=== PATIENT | female | born 1985 | race Caucasian/White ===

== ENCOUNTER 2017-05-16 15:27 | Inpatient (IN) | payer MEDICAID, OTHER ==
[2017-05-16 15:47] VITALS: BMI 19.1
[2017-05-16 16:32] LABS: BASO # 0.02 K/mm3 (0.0-2.0); BASO % 0.2 % (0.0-3.0); EOS # 0.1 (0.0-0.7); EOS % 1.1 % (1.5-5.0); GRAN # 7.53 (1.4-6.5); GRAN % 72.5 % (50.0-68.0); LYMPH # 2.1 (1.2-3.4); LYMPH % 20.2 % (22.0-35.0); MEAN CELL VOLUME 94.5 fL (80.0-105.0); MEAN CORPUSCULAR HEMOGLOBIN 31.6 pg (25.0-35.0); MEAN CORPUSCULAR HGB CONC 33.4 g/dl (31.0-37.0); MONO # 0.6 (0.1-0.6); PLATELET COUNT 276 10^3/uL (120.0-450.0); RBC 3.48 10^6/uL (3.5-6.1); RED CELL DISTRIBUTION WIDTH 12.8 % (11.5-14.5); WHITE BLOOD COUNT 10.4 10^3/ul (4.5-11.0)
--- NOTE | 2017-05-16 16:33 | ED PDOC ---
Arrival/HPI - General Chief Complaint: Psychiatric Evaluation Time Seen by Provider: 05/16/17 15:40 Historian: Patient - History of Present Illness Narrative History of Present Illness (Text): 05/16/17 16:26 A 32 year old female who is approximately 6 weeks , reports having a past medical history of psych disorders, PTSD, "diabetes", "seizure disorder", "fibromyalgia", and "CAD", not on any medication for diabetes or seizure, presents to the emergency department for unwitnessed seizure prior to arrival. Patient reports she was unable to get into her transitional home and went to see her grandmother. Upon arrival, she states her grandmother left because she did not want to see her. She reports that made her feel stressed which she believes caused her to have a seizure. Patient reports left arm weakness and generalized body aches. Patient denies any fever, chills, nausea, vomiting, diarrhea, abdominal pain, urinary symptoms, vaginal bleeding/discharge, chest pain, shortness of breath or any other complaints. Time/Duration: Prior to Arrival Quality: Other Context: Other Past Medical History - Provider Review Nursing Documentation Reviewed: Yes - Cardiac Hx Cardiac Disorders: Yes (unknown) - Pulmonary Hx Respiratory Disorders: No - Neurological Hx Neurological Disorder: No - HEENT Hx HEENT Disorder: No - Renal Hx Renal Disorder: No - Endocrine/Metabolic Hx Endocrine Disorders: No - Hematological/Oncological Hx Blood Disorders: No - Integumentary Hx Dermatological Disorder: No - Musculoskeletal/Rheumatological Hx Musculoskeletal Disorders: No - Gastrointestinal Hx Gastrointestinal Disorders: No - Genitourinary/Gynecological Hx Genitourinary Disorders: No - Psychiatric Hx Bipolar Disorder: Yes Hx Schizophrenia: Yes Hx Substance Use: No - Anesthesia Hx Anesthesia: No Family/Social History - Physician Review Nursing Documentation Reviewed: Yes Family/Social History: No Known Family HX Smoking Status: Never Smoked Hx Alcohol Use: No Hx Substance Use: No Allergies/Home Meds Allergies/Adverse Reactions: Allergies fluticasone [From Advair Diskus] Allergy (Verified 05/16/17 15:42) RASH salmeterol [From Advair Diskus] Allergy (Verified 05/16/17 15:42) RASH shellfish derived Allergy (Verified 05/16/17 15:42) RASH Home Medications: Home Meds Medication Instructions Recorded Confirmed Aspirin/Calcium Carbonate [Francisco 1 each PO DAILY 05/16/17 05/16/17 Women's Aspirin Tablet] Review of Systems - Physician Review All systems were reviewed & negative as marked: Yes - Review of Systems Constitutional: absent: Fevers, Night Sweats Respiratory: absent: SOB Cardiovascular: absent: Chest Pain Gastrointestinal: absent: Abdominal Pain, Diarrhea, Nausea, Vomiting Genitourinary Female: absent: Dysuria, Frequency, Hematuria, Urine Output Changes, Vaginal Bleeding, Vaginal Discharge Musculoskeletal: Myalgias Neurological: Seizure (possible), Other (Left arm weakness) Psychiatric: Other (No SI). absent: Suicidal Ideation Physical Exam Vital Signs Reviewed: Yes Vital Signs Temp Pulse Resp BP Pulse Ox 05/16/17 18:58 66 18 115/78 97 05/16/17 15:43 97.5 F L 69 20 113/75 94 L 05/16/17 15:40 97.5 F L 69 20 113/75 97 Temperature: Afebrile Blood Pressure: Normal Pulse: Regular Respiratory Rate: Normal Appearance: Positive for: Well-Appearing, Non-Toxic, Comfortable Pain Distress: None Mental Status: Positive for: Alert and Oriented X 3 - Systems Exam Head: Present: Atraumatic, Normocephalic Pupils: Present: PERRL Extroacular Muscles: Present: EOMI Conjunctiva: Present: Normal Mouth: Present: Moist Mucous Membranes Neck: Present: Normal Range of Motion Respiratory/Chest: Present: Clear to Auscultation, Good Air Exchange. No: Respiratory Distress, Accessory Muscle Use Cardiovascular: Present: Regular Rate and Rhythm, Normal S1, S2. No: Murmurs Abdomen: Present: Normal Bowel Sounds, Other (Gravid abdomen). No: Tenderness, Distention, Peritoneal Signs Back: Present: Normal Inspection Upper Extremity: Present: Normal Inspection. No: Cyanosis, Edema Lower Extremity: Present: Normal Inspection. No: Edema Neurological: Present: GCS=15, CN II-XII Intact, Speech Normal, Motor Func Grossly Intact, Normal Sensory Function, Normal Cerebellar Funct, Gait Normal Skin: Present: Warm, Dry, Normal Color. No: Rashes Psychiatric: Present: Alert, Oriented x 3, Normal Insight, Normal Concentration Medical Decision Making ED Course and Treatment: 05/16/17 16:25 Impression: A 32 year old female presented after unwitnessed seizure. Normal neuro exam. Differential Diagnosis included but are not limited to: Psych disorder NOS; ; Possible Seizure Plan: -- Head CT -- age ultrasound -- EKG -- Labs -- Urinalysis -- Reassess and disposition Progress Notes: EKG shows NSR at [address]-segment elevations, normal intervals, normal axis. Interpreted by me. Patient reported left arm weakness and stated she could not move her arm. However, throughout her examination I saw patient move her arm. She was further questioned and asked to move her arm which then she was able to fully move her arm. 05/16/17 16:46 Spoke with patients aunt, Johana, who reports family found patient on the porch screaming she was in pain. Aunt reports patient has a history of bipolar disorder and schizophrenia. She is unaware that patient has a history of diabetes or seizure disorder. Aunt states patient has self diagnosed at times. She reports patient was recently admitted to the hospital for psych. 05/16/17 17:02 Spoke to patient's mom who called. Her name is Owen and her cell number is . Mom states that patient has an extensive psych history and that she is not honest about her medical history. She doesn't believe she has all that medical issues she is stating. She states that her daughter has been admitted several times for psych and needs help. She states that and pt's grandmother have restraining orders on her. 05/16/17 17:54 Patient signed a waiver form required by radiology. She agreed to CT and CXR understands there may be some radiology exposure to the fetus. The abdomen and fetus was covered during imagining completion. CXR negative. 05/16/17 18:50 CT Head negative. Patient is medically cleared for psych evaluation and admission. 05/16/17 19:01 Case discussed with DUANE Marie who states patient will sign in for Bipolar to Dr. Landaverde. - Lab Interpretations Lab Results: 05/16/17 16:00 05/16/17 16:00 Lab Results 05/16/17 16:00: Alcohol, Quantitative < 10 05/16/17 16:00: Salicylates < 1 L, Acetaminophen < 10.0 L 05/16/17 16:00: Urine Color Yellow, Urine Appearance Clear, Urine pH 7.0, Ur Specific Chilton 1.020, Urine Protein Trace H, Urine Glucose (UA) Negative, Urine Ketones 15 H, Urine Blood Negative, Urine Nitrate Negative, Urine Bilirubin Negative, Urine Urobilinogen 0.2, Ur Leukocyte Esterase Negative, Urine RBC 0 - 2, Urine WBC 0 - 2, Ur Epithelial Cells 4 - 5, Calcium Oxalate Crystal Trace, Other Crystals None, Urine Bacteria Large 05/16/17 16:00: Sodium 137, Potassium 3.7, Chloride 108 H, Carbon Dioxide 22, Anion Gap 11, BUN 8, Creatinine 0.6, Est GFR ( Amer) > 60, Est GFR (Non- Af Amer) > 60, Random Glucose 79, Calcium 8.8, Magnesium 1.9, Total Bilirubin 0.4, AST 21, ALT 24, Alkaline Phosphatase 69, Troponin I < 0.01, Total Protein 6.5, Albumin 3.5, Globulin 3.0, Albumin/Globulin Ratio 1.2 05/16/17 16:00: PT 9.9, INR 0.92 L, APTT 28.5 05/16/17 16:00: WBC 10.4, RBC 3.48 L, Hgb 11.0 L, Hct 32.9 L, MCV 94.5, MCH 31.6 , MCHC 33.4, RDW 12.8, Plt Count 276, MPV 9.0, Gran % 72.5 H, Lymph % (Auto) 20.2 L, Anderson % (Auto) 6.0, Eos % (Auto) 1.1 L, Baso % (Auto) 0.2, Gran # 7.53 H , Lymph # 2.1, Anderson # 0.6, Eos # 0.1, Baso # 0.02 I have reviewed the lab results: Yes - RAD Interpretation Radiology Orders: 05/16/17 16:00 AGE [US] Stat 05/16/17 16:05 HEAD W/O CONTRAST [CT] Stat 05/16/17 16:53 CHEST PORTABLE [RAD] Stat - Scribe Statement The provider has reviewed the documentation as recorded by the Scribe Shahnaz Don Provider Scribe Attestation: All medical record entries made by the Scribe were at my direction and personally dictated by me. I have reviewed the chart and agree that the record accurately reflects my personal performance of the history, physical exam, medical decision making, and the department course for this patient. I have also personally directed, reviewed, and agree with the discharge instructions and disposition. Disposition/Present on Arrival - Present on Arrival Any Indicators Present on Arrival: No History of DVT/PE: No History of Uncontrolled Diabetes: No Urinary Catheter: No History of Decub. Ulcer: No History Surgical Site Infection Following: None - Disposition Have Diagnosis and Disposition been Completed?: No Diagnosis: Psychiatric care Disposition: HOSPITALIZED Disposition Time: 17:56 Patient Plan: Admission Patient Problems: Current Active Problems Problem Status Onset Psychiatric care Acute Condition: GOOD
[2017-05-16 16:35] LABS: ALB/GLOB RATIO 1.2 (1.1-1.8); ALBUMIN 3.5 g/dL (3.0-4.8); ALT/SGPT 24 U/L (7-56); AST/SGOT 21 U/L (15-39); BLOOD UREA NITROGEN 8 mg/dL (7-21); CALCIUM 8.8 mg/dL (8.4-10.5); GFR AFRICAN-AMERICAN > 60; GFR NON-AFRICAN AMERICAN > 60; MAGNESIUM 1.9 mg/dL (1.7-2.2)
[2017-05-16 16:39] LABS: ACETAMINOPHEN < 10.0 ug/ml (10.0-20.0); SALICYLATE < 1 mg/dL (2.0-20.0)
[2017-05-16 16:47] LABS: URINE BILIRUBIN NEGATIVE (NEGATIVE); URINE BLOOD NEGATIVE (NEGATIVE); URINE GLUCOSE (UA) NEGATIVE (NEGATIVE); URINE LEUKOCYTE ESTERASE NEGATIVE Leu/uL (NEGATIVE); URINE NITRATE NEGATIVE (NEGATIVE); URINE PROTEIN TRACE mg/dL (<30 mg/dL); URINE UROBILINOGEN 0.2 E.U./dL (<1 E.U./dL)
[2017-05-16 16:49] LABS: INR 0.92 (0.93-1.08); PARTIAL THROMBOPLASTIN TIME 28.5 Seconds (23.7-30.8); PROTHROMBIN TIME 9.9 Seconds (9.9-11.8)
[2017-05-16 16:51] LABS: TROPONIN I < 0.01 ng/mL
[2017-05-16 17:08] LABS: URINE APPEARANCE CLEAR (CLEAR); URINE COLOR YELLOW (YELLOW)
--- NOTE | 2017-05-16 17:40 | US ---
Indication: r/o viability Comparison: None available Technique: Real-time ultrasound was performed through the pelvis. Findings: There is a single living fetus in variable presentation. The placenta appears posterior extending to the fundus and to the right. The placenta is not previa. There are no adnexal masses or cysts evident. Cervix length measures approximately 3.4 cm. Measurements and calculations: Fetus has a composite sonographic age of 24 weeks 2 days. This calculation is based on the biparietal diameter, head circumference, abdominal circumference, and femur length. Estimated heart rate 143.4 beats per min. Impression: Single living fetus with a composite sonographic age of 24 weeks 2 days. Estimated heart rate 143.4 beats per min. The study was performed for emergent evaluation, and the whole anatomic survey of the fetus was not performed. This should be performed on an outpatient elective basis as clinically warranted.
[2017-05-16 18:20] LABS: URINE CALCIUM OXALATE CRYSTALS TRACE /hpf; URINE RBC 0 - 2 /hpf (0-2); URINE WBC 0 - 2 /hpf (0-6)
[2017-05-16 18:21] LABS: URINE BACTERIA LARGE (NEG)
--- NOTE | 2017-05-16 18:47 | CT ---
PROCEDURE: CT HEAD WITHOUT CONTRAST. HISTORY: seizure COMPARISON: None available. TECHNIQUE: Axial computed tomography images were obtained through the head/brain without intravenous contrast. Radiation dose: Total exam DLP = 677.45 mGy-cm. This CT exam was performed using one or more of the following dose reduction techniques: Automated exposure control, adjustment of the mA and/or kV according to patient size, and/or use of iterative reconstruction technique. FINDINGS: HEMORRHAGE: No intracranial hemorrhage. BRAIN: No mass effect or edema. No atrophy or chronic microvascular ischemic changes.Please note that MRI with diffusion imaging is more sensitive in the detection of acute ischemic event. VENTRICLES: No hydrocephalus. CALVARIUM: Unremarkable. PARANASAL SINUSES: Unremarkable as visualized. No significant inflammatory changes. MASTOID AIR CELLS: Unremarkable as visualized. No inflammatory changes. OTHER FINDINGS: None. IMPRESSION: No acute intracranial pathology identified.
[2017-05-16 18:58] VITALS: O2SAT 97
[2017-05-16 19:22] LABS: BARBITURATES, UR NEGATIVE (NEGATIVE); BENZODIAZEPINES, UR NEGATIVE (NEGATIVE); OPIATES, UR NEGATIVE (NEGATIVE); PHENCYCLIDINE, UR NEGATIVE (NEGATIVE)
--- NOTE | 2017-05-17 00:58 | PCM.BM ---
<Benedicto Vale - Last Filed: 05/17/17 01:06> Treatment Plan Problems - Problems identified on initial assessmt PSYCHOSIS Date Initiated: 05/16/17 Time Initiated: 21:00 Assessment reference: NA Status: Active MEDICATION NON COMPLIANCE Date Initiated: 05/16/17 Time Initiated: 22:00 Assessment reference: NA Status: Active Treatment assets and liabiliti Patient Assests: adapts well, cooperative, educated, motivated, self-reliant, ADL independent, physically healthy, negotiates basic needs, financial stabiity , cognitively intact, good interpersonal skills Patient Liabilities: live alone, financial problems, poor support system, relationship conflicts - Milieu Protocol Maintain good personal hygiene: daily Encourage regular showers, daily Remind patient to perform daily oral care Conduct patient checks and document Observation sheet: Q15 minutes Maintain personal safety: every shift Educate patient to report safety concerns to staff, every shift Monitor environment for contraband/sharps Medication safety: Monitor for expected outcome, potential side effects: every shift, Assess barriers to learning: every shift, Assess readiness for medication education: every shift Family Contact Family involvement: Family/SO is involved Family contact: Patient agrees to contact <Angela Vasquez - Last Filed: 05/17/17 15:04> - Diagnosis (1) Schizoaffective disorder Status: Acute Interventions: 05/17/17 15:05 Psychoeducation/psychotherapy Psychopharmacology/adjustment of medications as needed/ monitoring possible side effects Evaluate pt on daily basis Compliance with medications and follow up appointments Long acting medication if pt is noncompliant with pill form Suicide and homicide risk assessment and prevention, coping strategies, safety plan Relapse prevention Reduction of symptoms Improve functional status Possible assertive community treatment Cognitive behavioral therapy Family intervention Possible social skill training as outpatient (2) PTSD (post-traumatic stress disorder) Status: Acute Interventions: 05/17/17 15:05 Psychoeducation Psychopharmacology/adjustment of medications as needed/ monitoring possible side effects Evaluate pt on daily basis Compliance with medications and follow up appointments Suicide and homicide risk assessment and prevention, coping strategies, safety plan Reduction of symptoms Relaxation techniques and breathing exercises Improve functional status Family intervention As outpatient: cognitive behavioral therapy <Azul Marion - Last Filed: 05/21/17 08:47> Family Contact Family contact name: Aimee Maciel (pt's aunt/godmother), Family contacted how many times per week?: 2 Family contact comment: Patient's aunt provided collateral information regarding patient's condition, stating, "She's needs a lot of help." - Goals for Treatment Patient goals for treatment: Pt states, "I want to get my meds and get out of here." Discharge/Continuing Care - Education Needs Education Needs: Patient Medication, Patient Diagnosis/Disease Process, Patient Coping Skills, Patient Placement options, Patient Community resources, Patient Nutrition, Patient Health Practices/Safety, Patient Personal Hygiene/Grooming, Patient Aftercare Safety Plan, Patient Other ( care)
[2017-05-17 07:26] VITALS: RESP 20
[2017-05-17 07:38] LABS: GLUCOSE,FASTING 78 mg/dL (65-110); HDL CHOLESTEROL 56 mg/dL (29-60)
[2017-05-17 07:55] LABS: LDL CHOLESTEROL 146 mg/dL (0-129)
--- NOTE | 2017-05-17 08:59 | RAD ---
HISTORY: Chest pain COMPARISON: No prior. FINDINGS: LUNGS: The lungs are clear. PLEURA: No significant pleural effusion identified, no pneumothorax apparent. CARDIOVASCULAR: Normal. OSSEOUS STRUCTURES: No significant abnormalities. VISUALIZED UPPER ABDOMEN: Normal. OTHER FINDINGS: None. IMPRESSION: No active pulmonary disease.
--- NOTE | 2017-05-17 13:05 | CARD ---
APPROVED REPORT EKG Measurement Heart [id number] <Conclusion> Normal sinus rhythm Normal ECG
[2017-05-17] MEDS: PRENATAL VITAMIN PO SCH (13:18)
--- NOTE | 2017-05-17 13:41 | CP.PCM.CON ---
History of Present Illness - History of Present Illness History of Present Illness: Medicine consult note: 32 yo F with pmh of mainly self diagnosed DM, Seizures, CAD, strokes, asthma, gluten allergy, and PTSD presents following an episode of unwitnessed seizure. She states that she gets spasmadic accompanied with loss of vision and hearing. Patient also had earlier reported complaints of left arm weakness and generalized body aches. Head CT and CXR in the ED was mainly unremarkable. Pelvic US showed 24 week and 2 days viable . She currently has no medical complaints. Denies any dennis, dizziness, fever, chills, sob, chest pain, palpitation, abd pain, n/v/d. PMH: DM, Seizures, CAD, strokes, asthma, gluten allergy, and PTSD PSH: wisdom teeth extraction Med: aspirin but non since ALL: advair and gluten SH: hx of cocaine and marijuana but denies any since pregant, Active smoker 1PPd for 7 years, denies drinking FH: denies Review of Systems - Review of Systems All systems: reviewed and no additional remarkable complaints except (HPI) Past Patient History - Past Social History Smoking Status: Never Smoked Alcohol: None - CARDIAC Hx Cardiac Disorders: Yes (unknown) - PULMONARY Hx Respiratory Disorders: No - NEUROLOGICAL Hx Neurological Disorder: No - HEENT Hx HEENT Problems: No - RENAL Hx Chronic Kidney Disease: No - ENDOCRINE/METABOLIC Hx Endocrine Disorders: No - HEMATOLOGICAL/ONCOLOGICAL Hx Blood Disorders: No - INTEGUMENTARY Hx Dermatological Problems: No - MUSCULOSKELETAL/RHEUMATOLOGICAL Hx Musculoskeletal Disorders: No - GASTROINTESTINAL Hx Gastrointestinal Disorders: No - GENITOURINARY/GYNECOLOGICAL Hx Genitourinary Disorders: No - PSYCHIATRIC Hx Bipolar Disorder: Yes Hx Schizophrenia: Yes Hx Substance Use: No - SURGICAL HISTORY Hx Surgeries: No - ANESTHESIA Hx Anesthesia: No Meds Allergies/Adverse Reactions: Allergies Allergy/AdvReac Type Severity Reaction Status Date / Time fluticasone Allergy RASH Verified 05/16/17 15:42 [From Advair Diskus] salmeterol Allergy RASH Verified 05/16/17 15:42 [From Advair Diskus] shellfish derived Allergy RASH Verified 05/16/17 15:42 - Medications Medications: Current Medications Acetaminophen (Tylenol 325mg Tab) 500 mg PO Q6H PRN PRN Reason: Pain, Mild (1-3) Diphenhydramine HCl (Benadryl) 25 mg PO HS PRN PRN Reason: Insomnia Home Med (Home Med) 1 unit PO DAILY ISADORA Last Admin: 05/17/17 13:18 Dose: Not Given Physical Exam - Constitutional Appears: No Acute Distress - Head Exam Head Exam: ATRAUMATIC, NORMAL INSPECTION, NORMOCEPHALIC - Eye Exam Eye Exam: EOMI, Normal appearance, PERRL Pupil Exam: NORMAL ACCOMODATION, PERRL - ENT Exam ENT Exam: Mucous Membranes Moist, Normal Exam - Neck Exam Neck exam: Positive for: Normal Inspection - Respiratory Exam Respiratory Exam: Clear to Auscultation Bilateral, NORMAL BREATHING PATTERN. absent: Wheezes - Cardiovascular Exam Cardiovascular Exam: REGULAR RHYTHM, RRR, +S1, +S2 - GI/Abdominal Exam GI & Abdominal Exam: Normal Bowel Sounds, Soft. absent: Tenderness Additional comments: fundal height at umbilicus. - Extremities Exam Extremities exam: Positive for: normal inspection - Back Exam Back exam: NORMAL INSPECTION - Neurological Exam Neurological exam: Alert, CN II-XII Intact, Normal Gait, Oriented x3, Reflexes Normal - Psychiatric Exam Psychiatric exam: Normal Affect, Normal Mood - Skin Skin Exam: Dry, Intact, Normal Color, Warm Results - Vital Signs Recent Vital Signs: Last Vital Signs Temp 97.9 F 05/17/17 07:25 Pulse 59 L 05/17/17 07:25 Resp 20 05/17/17 07:25 BP 102/66 05/17/17 07:25 Pulse Ox 97 05/16/17 18:58 - Labs Result Diagrams: 05/16/17 16:00 05/16/17 16:00 Labs: Laboratory Results - last 24 hr 05/17/17 05/17/17 05/17/17 06:25 06:25 06:25 Fasting Glucose 78 Triglycerides 134 Cholesterol 211 H LDL Cholesterol Direct 146 H HDL Cholesterol 56 TSH 3rd Generation 2.06 Blood Type O POSITIVE Blood Type Confirm Antibody Screen Negative BBK History Checked No verified bt 05/17/17 09:18 Fasting Glucose Triglycerides Cholesterol LDL Cholesterol Direct HDL Cholesterol TSH 3rd Generation Blood Type Blood Type Confirm O POSITIVE Antibody Screen BBK History Checked Assessment & Plan - Assessment and Plan (Free Text) Assessment: 32 yo F with pmh of mainly self diagnosed DM, Seizures, CAD, strokes, asthma, gluten allergy, and PTSD presents following an episode of reported unwitnessed seizure and hx of psych trauma and PTSD. 1. Psych hx and seizure dx - management as per Psych 2. Reported unwitnessed Seizure - Head CT neg - Seizure precautions - Consider Neuro consult and EEG for active witnessed seizure - Cont to monitor 3. HLD - LDL 146 - Low fat diet - repeat labs as outpt if still high consider statin 4. Self diagnosed DM - Ordered Hba1c 5. Self diagnosed CAD - Trop neg - Cont to monitor 6. - F/u with OBGYN consult and recs 7. GI/DVT ppx - Diet and ambulation Case and plan was seen and discussed in detail with Dr Huerta.
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
[2017-05-17] MEDS ORDERED: DiphenhydrAMINE 50 mg/ml Inj IM PRN (14:32)
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
[2017-05-18 11:55] LABS: RUBELLA AB (IGG) 1.85 index
--- NOTE | 2017-05-18 15:08 | PCM.PYCHPN ---
Psychiatric Progress Note - Psychiatric Progress Note Patient seen today, length of contact: 30min Patient Chief Complaint: "my family wants me , they want all of my millions, but they do not care about me..." Problems Identified/Issues Discussed: Suicide/ homicide prevention, past psychiatric h/o, current psychiatric symptoms , medical problems, risk/benefits and alternatives of medications, medications compliance, coping strategies, substance abuse h/o, relapse prevention, importance of follow up with psychiatrist and therapist, discharge plan. Medical Problems: pt is 5 months self reported "massive heart attack' Diagnostic Results: 05/16/17 16:00 05/16/17 16:00 Lab Results 05/18/17 11:28: POC Glucose (mg/dL) 85 05/18/17 07:27: POC Glucose (mg/dL) 70 05/18/17 00:19: POC Glucose (mg/dL) 77 05/17/17 09:18: Blood Type Confirm O POSITIVE 05/17/17 07:00: Rubella IgG Antibody 1.85 05/17/17 07:00: Hepatitis C Antibody Negative 05/17/17 07:00: HIV 1&2 Antibody Screen Negative 05/17/17 07:00: Hep Bs Antigen Negative 05/17/17 07:00: Hemoglobin A1c 5.4 05/17/17 06:25: RPR Nonreactive 05/17/17 06:25: TSH 3rd Generation 2.06 05/17/17 06:25: Fasting Glucose 78, Triglycerides 134, Cholesterol 211 H, LDL Cholesterol Direct 146 H, HDL Cholesterol 56 05/17/17 06:25: Blood Type O POSITIVE, Antibody Screen Negative, BBK History Checked No verified bt 05/16/17 16:00: Urine Opiates Screen Negative, Urine Methadone Screen Negative, Ur Barbiturates Screen Negative, Ur Phencyclidine Scrn Negative, Ur Amphetamines Screen Negative, U Benzodiazepines Scrn Negative, U Oth Cocaine Metabols Negative, U Cannabinoids Screen Positive H 05/16/17 16:00: Alcohol, Quantitative < 10 05/16/17 16:00: Salicylates < 1 L, Acetaminophen < 10.0 L 05/16/17 16:00: Urine Color Yellow, Urine Appearance Clear, Urine pH 7.0, Ur Specific [place] 1.020, Urine Protein Trace H, Urine Glucose (UA) Negative, Urine Ketones 15 H, Urine Blood Negative, Urine Nitrate Negative, Urine Bilirubin Negative, Urine Urobilinogen 0.2, Ur Leukocyte Esterase Negative, Urine RBC 0 - 2, Urine WBC 0 - 2, Ur Epithelial Cells 4 - 5, Calcium Oxalate Crystal Trace, Other Crystals None, Urine Bacteria Large 05/16/17 16:00: Sodium 137, Potassium 3.7, Chloride 108 H, Carbon Dioxide 22, Anion Gap 11, BUN 8, Creatinine 0.6, Est GFR ( Amer) > 60, Est GFR (Non- Af Amer) > 60, Random Glucose 79, Calcium 8.8, Magnesium 1.9, Total Bilirubin 0.4, AST 21, ALT 24, Alkaline Phosphatase 69, Troponin I < 0.01, Total Protein 6.5, Albumin 3.5, Globulin 3.0, Albumin/Globulin Ratio 1.2 05/16/17 16:00: PT 9.9, INR 0.92 L, APTT 28.5 05/16/17 16:00: WBC 10.4, RBC 3.48 L, Hgb 11.0 L, Hct 32.9 L, MCV 94.5, MCH 31.6 , MCHC 33.4, RDW 12.8, Plt Count 276, MPV 9.0, Gran % 72.5 H, Lymph % (Auto) 20.2 L, [place] % (Auto) 6.0, Eos % (Auto) 1.1 L, Baso % (Auto) 0.2, Gran # 7.53 H , Lymph # 2.1, [place] # 0.6, Eos # 0.1, Baso # 0.02 Vital Signs Temp Pulse Resp BP Pulse Ox 05/18/17 07:32 97.9 F 68 20 89/60 L 05/17/17 15:56 69 110/78 05/17/17 07:25 97.9 F 59 L 20 102/66 05/16/17 18:58 66 18 115/78 97 05/16/17 15:43 97.5 F L 69 20 113/75 94 L 05/16/17 15:40 97.5 F L 69 20 113/75 97 DSM 5 Symptoms Update: shortly patient is 32 year old female, reported h/o mental illness (most likely schizoaffective vs bipolar with psychosis) ?PTSD, two previous psychiatric admissions into [facility] (involuntary), brought herself to the hospital for evaluation of unwitnessed seizures, pt is 5months , during the ED evaluation pt presented to be disorganized, grandiose, was offered admission, pt was in agreement to stay in the hospital. Pt was seen at the tx team meeting, presented with marginal personal hygiene, good ADLs, was calm, cooperative, but at the same time pt was circumstantial, tangential, disorganized thought process, pt had delusions of grandor. 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 pt said that she did get to know that she is three weeks ago, "I lost my menses because I was stressed out and malnourished, I did not know I was up until the past four weeks, my belly was not growing...", pt said that her family does not want to deal with her because "they want me , because I am so rich, they have all of my credit cards, I have millions of dollars and they want me to be homeless and on streets and take my money... ", pt denied any angry feelings towards others or towards herself and "I am feeling happy that I have a baby, I am keeping him, it gives me stability in life...". pt said that she was not seeing Autoclave Operator doctor because "I didn't know I was ". Pt said that she is not hearing voices or seeing things, but pt is delusional, grandiose, disorganized. pt was seen by Staffing Account Manager physician yesterday, had prolonged conversation. pt is having heart beats monitorin MVI initiated pt gave consent to speak to her godmother, SW called and left her a message pt's mother called to the unit but pt did not allow this senior medical writer to disclose any info. Owen Recinos [phone] as per staff pt was paranoid, guarded, but no agitation or aggression Impression: r/o schizophrenia r/o bipolar with psychosis report at [facility] 04/11/17 pt was and knew about her (placed in chart) Medication Change: Yes (haldol started) Medical Record Reviewed: Yes Consults ordered or reviewed: medical consult and obgyn consult appreciated Mental Status Examination - Cognitive Function Orientation: Person, Place, Situation Memory: Intact Attention: Poor Concentration: Poor Association: Loose Fund of Knowledge: WNL - Mood Mood: Other ("I feel fine, I am here to rest...") - Affect Affect: Other (expanded, irritable) - Speech Speech: Pressured (obverproductive) - Formal Thought Process Formal Thought Process: Delusions, Paranoia, Loosening of associations, Circumstantial - Suicidal Ideation Suicidal Ideation: No - Homicidal Ideation Homicidal Ideation: No Goal/Treatment Plan - Goal/Treatment Plan Need for Continued Stay: Remain at risks for inpatient hospitalization, Severe depression anxiety, Discharge may exacerbated symptoms, Severe functional impairment Progress Toward Problem(s) and Goals/Treatment Plan: milieu/structure/supportive therapy will call medical consult, appreciated inside technical sales representative consult appreciated ? neurology consult, will consider vitamins SW evaluation [facility] was called "will be evaluated within 72hrs" family involvement, pt was not giving consent for collaterals "they want me " at present moment pt is not in any distress, no agitation, no aggression will monitor closely first line of medication for manic patient as per [employer] [facility] is Haldol, will initiate as needed first then will obtain collaterals and hopefully medical record from [facility] Haldol 2mg IMq6h prn for severe agitation Haldol 2mg po q6h prn for psychosis benadryl 25IM q6h prn for severe agitation and prevent EPS. pt submitted 48hr notice, will call for [facility] for eval, pt is disorganized, homeless, psychotic, UDS positive cannabis Estimated Date of D/C: 05/22/17 (will eval on daily basis)
[2017-05-18] MEDS: Multivitamin Therapeutic Tab PO SCH (16:47)
[2017-05-18] MEDS: PRENATAL VITAMIN PO SCH (16:47)
[2017-05-19] MEDS: Multivitamin Therapeutic Tab PO SCH (08:59)
--- NOTE | 2017-05-19 09:32 | PCM.PYCHPN ---
Psychiatric Progress Note - Psychiatric Progress Note Patient seen today, length of contact: 25 min Patient Chief Complaint: "I am not here for psych issues" Problems Identified/Issues Discussed: I reviewed assessment and recent notes. Patient was interviewed at bedside. She is calm and superficially cooperative. Affect is a little defensive as she responds to questioning. Indicates that she "isn't here for any psychiatric issues". Reports that she will not be taking any medications. Patient denies depression, AVH, SI or HI. Responses are brief without elaboration. Patient denies any new discomfort or pain. Explains she has fibromyalgia and experiences chronic fatigue. She doesn't appear to be in distress. Continues to feel normal baby movement without change since yesterday. There were no behavioral issues overnight Diagnostic Results: r/o schizophrenia r/o bipolar with psychosis Medication Change: Yes (haldol started) Medical Record Reviewed: Yes Mental Status Examination - Cognitive Function Orientation: Person, Place, Situation Memory: Intact Attention: Poor Concentration: Poor Association: Loose Fund of Knowledge: WNL - Mood Mood: Other ("I feel fine, I am here to rest...") - Affect Affect: Other (expanded, irritable) - Speech Speech: Pressured (obverproductive) - Formal Thought Process Formal Thought Process: Delusions, Paranoia, Loosening of associations, Circumstantial - Suicidal Ideation Suicidal Ideation: No - Homicidal Ideation Homicidal Ideation: No Goal/Treatment Plan - Goal/Treatment Plan Need for Continued Stay: Remain at risks for inpatient hospitalization, Severe depression anxiety, Discharge may exacerbated symptoms, Severe functional impairment Progress Toward Problem(s) and Goals/Treatment Plan: * c/w current tx and plan, encourage patient to comply with treatment team requests, including medication management * [facility] screened patient, due to be involuntarily transferred * Monitor closely * No new labs overnight * Vitals reviewed and noted below: Selected Entries 05/18/17 05/18/17 07:32 16:31 Temperature 97.9 F 98.4 F Pulse Rate 68 74 Respiratory 20 Rate Blood Pressure 89/60 L 113/64 Estimated Date of D/C: 05/22/17 (will eval on daily basis)
[2017-05-19 16:00] VITALS: BP 103/65; PULSE 54; TEMP 97.9
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
== END 2017-05-19 16:52 | disposition home or self-care (01) | DRG 885 ==
LOC: ED 15:27 → ERH 18:59 → PSYC 20:28
PROVIDERS: ADMIT Psychiatry & Neurology Psychiatry; ATTEND Psychiatry & Neurology Psychiatry
DX: F25.9 Schizoaffective disorder, unspecified (principal); O99.322 Drug use complicating pregnancy, second trimester; R56.9 Unspecified convulsions; F31.9 Bipolar disorder, unspecified; O99.342 Other mental disorders complicating pregnancy, second trimester; F12.10 Cannabis abuse, uncomplicated; F17.210 Nicotine dependence, cigarettes, uncomplicated; O99.332 Smoking (tobacco) complicating pregnancy, second trimester; J45.909 Unspecified asthma, uncomplicated; Z3A.24 24 weeks gestation of pregnancy; Z59.0 Homelessness

== ENCOUNTER 2018-05-18 20:24 | Emergency (ER) | payer MEDICAID, OTHER ==
[2018-05-18 20:24] VITALS: BMI 19.1
[2018-05-18 20:59] VITALS: TEMP 98.9
--- NOTE | 2018-05-18 21:12 | ED PDOC ---
Arrival/HPI - General Chief Complaint: Finger,Hand,&Wrist Time Seen by Provider: 05/18/18 21:09 Historian: Patient - History of Present Illness Narrative History of Present Illness (Text): 05/18/18 21:12 t Past Medical History - Cardiac Hx Cardiac Disorders: Yes Hx Hypertension: Yes - Pulmonary Hx Respiratory Disorders: No - Neurological Hx Neurological Disorder: Yes Hx Seizures: Yes - HEENT Hx HEENT Disorder: No - Renal Hx Renal Disorder: No - Endocrine/Metabolic Hx Endocrine Disorders: Yes Hx Diabetes Mellitus Type 2: Yes - Hematological/Oncological Hx Blood Disorders: Yes Hx Cancer: Yes - Integumentary Hx Dermatological Disorder: No - Musculoskeletal/Rheumatological Hx Musculoskeletal Disorders: Yes - Gastrointestinal Hx Gastrointestinal Disorders: No - Genitourinary/Gynecological Hx Sexually Transmitted Diseases: No - Psychiatric Hx Psychophysiologic Disorder: Yes Hx Anxiety: Yes Hx Post Traumatic Stress Disorder: Yes Hx Schizophrenia: Yes Hx Substance Use: No - Anesthesia Hx Anesthesia: No Family/Social History Smoking Status: Former Smoker Hx Alcohol Use: Yes Frequency of alcohol use: Socially Hx Substance Use: No Substance used: marijuana Allergies/Home Meds Allergies/Adverse Reactions: Allergies acetaminophen [From Tylenol] Allergy (Verified 05/18/18 20:27) SWELLING fluticasone [From Advair Diskus] Allergy (Verified 05/18/18 20:27) SWELLING gluten Allergy (Verified 05/18/18 20:27) SWELLING salmeterol [From Advair Diskus] Allergy (Verified 05/18/18 20:27) SWELLING shellfish derived Allergy (Verified 05/18/18 20:27) SWELLING Home Medications: Home Meds Medication Instructions Recorded Confirmed No Known Home Med 05/31/17 05/18/18 Physical Exam Vital Signs Temp Pulse Resp BP Pulse Ox 05/18/18 20:28 98.9 F 86 16 130/83 98 Medical Decision Making - RAD Interpretation Radiology Orders: 05/18/18 21:11 HAND RIGHT 3 VIEWS [RAD] Stat WRIST, RIGHT 3 VIEWS [RAD] Stat Disposition/Present on Arrival - Present on Arrival History of DVT/PE: No History of Uncontrolled Diabetes: No Urinary Catheter: No History of Decub. Ulcer: No History Surgical Site Infection Following: None - Disposition Forms: [employer] (Indian)
--- NOTE | 2018-05-18 21:14 | ED PDOC ---
Arrival/HPI - General Chief Complaint: Finger,Hand,&Wrist Time Seen by Provider: 05/18/18 21:09 Historian: Patient - History of Present Illness Narrative History of Present Illness (Text): 05/18/18 21:09 33 year old female who denies any past medical history, presents to the emergency department complaining of right wrist and right hand pain since yesterday. Patient states that a sliding automatic door crushed her wrist and hand at work. After she took her hand out, patient reports she had a puncture wound on the right dorsal wrist. She feels that her wrist and hand is swollen, bruised, and painful. Patient is ambidextrous. Patient denies any other complaints. Patient's tetanus is up to date. Patient is requesting x-rays to find out if she fracture her wrist. Time/Duration: 24 hours Symptom Onset: Sudden Symptom Course: Unchanged Activities at Onset: Light Context: Work Past Medical History - Provider Review Nursing Documentation Reviewed: Yes - Cardiac Hx Cardiac Disorders: Yes Hx Hypertension: Yes - Pulmonary Hx Respiratory Disorders: No - Neurological Hx Neurological Disorder: Yes Hx Seizures: Yes - HEENT Hx HEENT Disorder: No - Renal Hx Renal Disorder: No - Endocrine/Metabolic Hx Endocrine Disorders: Yes Hx Diabetes Mellitus Type 2: Yes - Hematological/Oncological Hx Blood Disorders: Yes Hx Cancer: Yes - Integumentary Hx Dermatological Disorder: No - Musculoskeletal/Rheumatological Hx Musculoskeletal Disorders: Yes - Gastrointestinal Hx Gastrointestinal Disorders: No - Genitourinary/Gynecological Hx Sexually Transmitted Diseases: No - Psychiatric Hx Psychophysiologic Disorder: Yes Hx Anxiety: Yes Hx Post Traumatic Stress Disorder: Yes Hx Schizophrenia: Yes Hx Substance Use: No - Anesthesia Hx Anesthesia: No Family/Social History - Physician Review Nursing Documentation Reviewed: Yes Family/Social History: Other (noncontributory) Smoking Status: Former Smoker Hx Alcohol Use: Yes Frequency of alcohol use: Socially Hx Substance Use: No Substance used: marijuana Allergies/Home Meds Allergies/Adverse Reactions: Allergies acetaminophen [From Tylenol] Allergy (Verified 05/18/18 20:27) SWELLING fluticasone [From Advair Diskus] Allergy (Verified 05/18/18 20:27) SWELLING gluten Allergy (Verified 05/18/18 20:27) SWELLING salmeterol [From Advair Diskus] Allergy (Verified 05/18/18 20:27) SWELLING shellfish derived Allergy (Verified 05/18/18 20:27) SWELLING Review of Systems - Physician Review All systems were reviewed & negative as marked: Yes - Review of Systems Constitutional: absent: Fevers Respiratory: absent: SOB Cardiovascular: absent: Chest Pain Gastrointestinal: absent: Diarrhea, Nausea, Vomiting Genitourinary Female: absent: Dysuria, Frequency, Hematuria Musculoskeletal: Other (right raise right hand pain). absent: Back Pain, Neck Pain Skin: Other (puncture wound on the right dorsal wrist) Neurological: absent: Headache, Dizziness Physical Exam Vital Signs Reviewed: Yes Vital Signs Temp Pulse Resp BP Pulse Ox 05/18/18 20:28 98.9 F 86 16 130/83 98 Temperature: Afebrile Blood Pressure: Normal Pulse: Regular Respiratory Rate: Normal Appearance: Positive for: Well-Appearing, Non-Toxic, Comfortable Pain Distress: None Mental Status: Positive for: Alert and Oriented X 3 - Systems Exam Head: Present: Atraumatic, Normocephalic Pupils: Present: PERRL Extroacular Muscles: Present: EOMI Conjunctiva: Present: Normal Mouth: Present: Moist Mucous Membranes Neck: Present: Normal Range of Motion Respiratory/Chest: Present: Clear to Auscultation, Good Air Exchange. No: Respiratory Distress, Accessory Muscle Use Cardiovascular: Present: Regular Rate and Rhythm, Normal S1, S2. No: Murmurs Abdomen: No: Tenderness, Distention, Peritoneal Signs Back: Present: Normal Inspection Upper Extremity: Present: Other (swelling ecchymosis on the wrist and hand. There is a 6mm puncture wound on the dorsal aspect of right wrist). No: Cyanosis, Edema, Deformity Lower Extremity: Present: Normal Inspection. No: Edema Neurological: Present: GCS=15, CN II-XII Intact, Speech Normal Skin: Present: Warm, Dry, Normal Color. No: Rashes Psychiatric: Present: Alert, Oriented x 3, Normal Insight, Normal Concentration Medical Decision Making ED Course and Treatment: 05/18/18 21:09 Impression: 33 year old female presents complaining of right raise right hand pain yesterday after hand getting caught on automatic door. Plan: -- Motrin Tab -- Hand Right 3 views x-ray -- Wrist, Right 3 Views x-ray -- Reassess and disposition Progress Notes: 05/18/18 21:45 Re-evaluation. Patient feels better. Discussed results and plan with patient who expresses understanding. All questions answered and there is agreement with the plan to discharge home with instructions. Patient stable for discharge. Return if symptoms persist or worsen. Re-evaluation Time: 21:45 Reassessment Condition: Re-examined, Improved - RAD Interpretation Narrative RAD Interpretations (Text): 05/18/18 21:45 Wrist x-rays: no Fx Hand x-rays: No Fx Radiology Orders: 05/18/18 21:11 HAND RIGHT 3 VIEWS [RAD] Stat WRIST, RIGHT 3 VIEWS [RAD] Stat - Medication Orders Current Medication Orders: Discontinued Medications Ibuprofen (Motrin Tab) 600 mg PO STAT STA Stop: 05/18/18 21:13 - Scribe Statement The provider has reviewed the documentation as recorded by the Brandyn Hewitt Provider Scribe Attestation: All medical record entries made by the Scribe were at my direction and personally dictated by me. I have reviewed the chart and agree that the record accurately reflects my personal performance of the history, physical exam, medical decision making, and the department course for this patient. I have also personally directed, reviewed, and agree with the discharge instructions and disposition. Disposition/Present on Arrival - Present on Arrival Any Indicators Present on Arrival: No History of DVT/PE: No History of Uncontrolled Diabetes: No Urinary Catheter: No History of Decub. Ulcer: No History Surgical Site Infection Following: None - Disposition Have Diagnosis and Disposition been Completed?: Yes Diagnosis: Wrist contusion, Hand contusion, Puncture wound Disposition: HOME/ ROUTINE Disposition Time: 21:53 Patient Plan: Discharge Patient Problems: Current Active Problems Problem Status Onset Hand contusion Acute Puncture wound Acute Wrist contusion Acute Condition: GOOD Discharge Instructions (ExitCare): Wrist Sprain (DC), Wound Care (DC), Contusion (DC) Additional Instructions: Call private doctor for follow up visit in 1-2 days. Take medication as instructed. Return to emergency if wound becomes infected. Clean wound with soap and water daily Prescriptions: Cephalexin [cephalexin] 500 mg PO QID #28 cap Ibuprofen [Motrin] 600 mg PO Q8 PRN #20 tab PRN Reason: Pain, Severe (8-10) Referrals: [facility] [Outside] - Follow up with primary Kathleen Garcia MD [Staff Provider] - Follow up with primary Forms: [employer] ([place]uan), WORK NOTE
[2018-05-18 23:16] VITALS: BP 128/70; PULSE 80; RESP 17; O2SAT 100
--- NOTE | 2018-05-19 10:09 | RAD ---
Date of service: 05/18/2018 PROCEDURE: Right Wrist Radiographs. HISTORY: Pain COMPARISON: None. FINDINGS: BONES: Bone alignment and mineralization are normal. There is no acute displaced fracture or bone destruction. JOINTS: Normal. No dislocation. SOFT TISSUES: Normal. OTHER FINDINGS: None. IMPRESSION: No acute fracture or dislocation.
--- NOTE | 2018-05-19 10:16 | RAD ---
PROCEDURE: Right Hand Radiographs. HISTORY: pain s/p trauma COMPARISON: None. FINDINGS: BONES: Bone alignment and mineralization are normal. There is no acute displaced fracture or bone destruction. JOINTS: Normal. SOFT TISSUES: Normal. OTHER FINDINGS: None. IMPRESSION: No acute fracture or dislocation.
== END 2018-05-18 22:17 | disposition home or self-care (01) ==
LOC: ED 20:24
DX: S60.221A Contusion of right hand, initial encounter (principal); S60.211A Contusion of right wrist, initial encounter; S61.531A Puncture wound without foreign body of right wrist, initial encounter; W23.0XXA Caught, crushed, jammed, or pinched between moving objects, initial encounter; Y99.0 Civilian activity done for income or pay; Z87.891 Personal history of nicotine dependence; I10 Essential (primary) hypertension; E11.9 Type 2 diabetes mellitus without complications; F20.9 Schizophrenia, unspecified